=== PATIENT | male | born 1985 | race Caucasian/White ===

== ENCOUNTER 2020-06-29 20:06 | Emergency (ER) | payer SELFPAY ==
[~2020-06-29] VITALS: Ht 170.2 cm; Wt 60.9 kg
[2020-06-29] MEDS ORDERED: ADV250INH INH ×2 (20:17→20:56)
[2020-06-29] MEDS ORDERED: ALBU2TA PO (20:17)
[2020-06-29] MEDS ORDERED: PROAAER10 INH (20:56)
[2020-06-29] MEDS ORDERED: ALBUTEROL 90 MCG/ACT 8GM HFA INHALER INH ONE (21:00)
[2020-06-29 21:30] VITALS: BP 135/72
== END 2020-06-29 21:31 | disposition home or self-care (01) ==
LOC: M ED 20:06
DX: Z76.0 Encounter for issue of repeat prescription (principal); J45.909 Unspecified asthma, uncomplicated; Z79.51 Long term (current) use of inhaled steroids